=== PATIENT | male | born 1990 | race Hispanic/Latino ===

== ENCOUNTER 2022-09-18 16:39 | Emergency (ER) | payer OTHER ==
[~2022-09-18] VITALS: Ht 172.7 cm; Wt 93.0 kg
[2022-09-18] MEDS ORDERED: CYCLOBENZAPRINE HCL 10 MG TABLET PO ONE (19:00)
[2022-09-18] MEDS ORDERED: LIDOCAINE 5% TOPICAL PATCH TP ONE (19:00)
[2022-09-18] MEDS ORDERED: KETOROLAC 15MG/ML VIAL (15MG/ML) IM ONE (19:00)
[2022-09-18] MEDS ORDERED: CYCL5TAB PO (19:01)
[2022-09-18] MEDS ORDERED: LIDO1ADH82 TP (19:01)
[2022-09-18] MEDS ORDERED: KETO10TA2 PO (19:01)
[2022-09-18 19:12] VITALS: BP 139/84
== END 2022-09-18 19:18 | disposition home or self-care (01) ==
LOC: EDH 16:39
DX: M62.838 Other muscle spasm (principal)
CPT/HCPCS: 99283; 96372; J1885